=== PATIENT | female | born 1970 ===

== ENCOUNTER 2018-09-21 17:47 | Emergency (ER) | payer OTHER ==
[2018-09-21 18:12] VITALS: RESP 16
[2018-09-21 19:17] LABS: BASO # 0.1 K/uL (0.0-0.2); EOS # 0.1 K/uL (0.0-0.7); EOS % 1.4 % (0.0-4.0); LYMPH # 2.6 K/uL (1.0-4.3); LYMPH % 35.1 % (20.0-40.0); MEAN CELL VOLUME 87.1 fl (81.0-99.0); MEAN CORPUSCULAR HEMOGLOBIN 28.3 pg (27.0-31.0); MEAN CORPUSCULAR HGB CONC 32.5 g/dL (33.0-37.0); MEAN PLATELET VOLUME 10.5 fl (7.2-11.7); MONO # 0.6 K/uL (0.0-0.8); MONO % 8.5 % (0.0-10.0); NEUT # 3.9 K/uL (1.8-7.0); RBC 4.6 Mil/uL (3.80-5.20); WHITE BLOOD COUNT 7.3 K/uL (4.8-10.8)
[2018-09-21 19:24] LABS: PROTHROMBIN TIME 10.9 Seconds (9.8-13.1)
[2018-09-21 19:26] LABS: PARTIAL THROMBOPLASTIN TIME 31.7 Seconds (25.6-37.1)
[2018-09-21 19:38] LABS: ALB/GLOB RATIO 1.3 (1.0-2.1); ALBUMIN 4.2 g/dL (3.5-5.0); ALT/SGPT 31 U/L (9-52); AST/SGOT 26 U/L (14-36); BLOOD UREA NITROGEN 22 mg/dl (7-17); CALCIUM 9.5 mg/dL (8.4-10.2); GFR NON-AFRICAN AMERICAN > 60; LIPASE 66 U/L (23-300)
--- NOTE | 2018-09-21 19:43 | ED PDOC ---
HPI: Abdomen Time Seen by Provider: 09/21/18 18:28 Chief Complaint (Nursing): Abdominal Pain Chief Complaint (Provider): Abdominal Pain History Per: Patient History/Exam Limitations: no limitations Onset/Duration Of Symptoms: Days (x2 weeks ) Associated Symptoms: denies: Fever, Chills Additional Complaint(s): Patient is a 48 year old female with a past medical history of anxiety, who presents to the emergency department complaining of intermittent abdominal pain. Patient states that pain comes suddenly and resolves spontaneously on its own without intervention. She states that pain has been present all day and is worse with deep breaths. It is associated with nausea and decreased appetite, but she denies having any vomiting, diarrhea, constipation, fever, chills, or urinary symptoms. Patient saw her PMD earlier this week, who recommends a CT scan that is scheduled for this Wednesday. PMD: Jim Bloom Past Medical History Reviewed: Historical Data, Nursing Documentation, Vital Signs Vital Signs: Last Vital Signs Temp 98.2 F 09/21/18 18:10 Pulse 77 09/21/18 18:10 Resp 16 09/21/18 18:10 BP 134/85 09/21/18 18:10 Pulse Ox 100 09/21/18 18:10 - Medical History PMH: Anxiety, Depression - Surgical History Surgical History: ( x 3) Other surgeries: hysterectomy; left shoulder surgery - Family History Family History: States: Hypertension - Social History Current smoker - smoking cessation education provided: No Ex-Smoker (has not smoked in the last 12 months): No Alcohol: None - Home Medications Home Medications: Ambulatory Orders Medication Instructions Recorded Paroxetine HCl [Paxil] 10 mg PO DAILY 09/19/18 Amoxicillin/Clavulanate [Augmentin 1 tab PO BID #20 tab 09/21/18 875 MG-125 MG] Clarithromycin [Biaxin Filmtab] 500 mg PO BID #20 tab 09/21/18 Dicyclomine [Bentyl] 20 mg PO QID PRN #20 tab 09/21/18 Omeprazole Magnesium [Prilosec Otc] 20 mg PO BID #30 tcp 09/21/18 Saccharomyces Boulardi [Florastor] 500 mg PO BID #28 cap 09/21/18 - Allergies Allergies/Adverse Reactions: Allergies Allergy/AdvReac Type Severity Reaction Status Date / Time No Known Allergies Allergy Verified 09/21/18 18:10 Review of Systems ROS Statement: Except As Marked, All Systems Reviewed And Found Negative Constitutional: Negative for: Fever, Chills Gastrointestinal: Positive for: Nausea, Abdominal Pain. Negative for: Vomiting, Diarrhea, Constipation Genitourinary Female: Negative for: Dysuria, Frequency, Incontinence, Hematuria Physical Exam - Reviewed Nursing Documentation Reviewed: Yes Vital Signs Reviewed: Yes - Physical Exam Appears: Positive for: Non-toxic, In Acute Distress (mild painful distress) Head Exam: Positive for: ATRAUMATIC, NORMOCEPHALIC Skin: Positive for: Warm, Dry Eye Exam: Positive for: EOMI, PERRL ENT: Negative for: Pharyngeal Erythema, Tonsillar Exudate Neck: Positive for: Painless ROM, Supple Cardiovascular/Chest: Positive for: Regular Rate, Rhythm. Negative for: Murmur Respiratory: Positive for: Normal Breath Sounds. Negative for: Respiratory Distress Gastrointestinal/Abdominal: Positive for: Soft, Tenderness (RUQ tenderness to palpation with positive Rodriguez's sign; Right periumbilical tenderness to palpation; (-) Mcburney's point tenderness). Negative for: Mass, Distended, Guarding, Rebound Back: Positive for: Normal Inspection. Negative for: Muscle Spasm Extremity: Positive for: Normal ROM. Negative for: Deformity Lymphatic: Negative for: Adenopathy Neurologic/Psych: Positive for: Alert. Negative for: Motor/Sensory Deficits - Laboratory Results Result Diagrams: 09/21/18 19:13 09/21/18 19:13 Lab Results: PT 10.9 Seconds (9.8-13.1) 09/21/18 19:13 INR 1.0 09/21/18 19:13 APTT 31.7 Seconds (25.6-37.1) 09/21/18 19:13 Total Bilirubin 0.5 mg/dl (0.2-1.3) 09/21/18 19:13 AST 26 U/L (14-36) 09/21/18 19:13 ALT 31 U/L (9-52) 09/21/18 19:13 Alkaline Phosphatase 87 U/L (38-126) 09/21/18 19:13 Total Protein 7.4 G/DL (6.3-8.2) 09/21/18 19:13 Albumin 4.2 g/dL (3.5-5.0) 09/21/18 19:13 Globulin 3.2 gm/dL (2.2-3.9) 09/21/18 19:13 Albumin/Globulin Ratio 1.3 (1.0-2.1) 09/21/18 19:13 Lipase 66 U/L (23-300) 09/21/18 19:13 - ECG O2 Sat by Pulse Oximetry: 100 (RA) Pulse Ox Interpretation: Normal Medical Decision Making Medical Decision Making: Time: 1843 Impression: right sided abdominal pain --Differential diagnosis includes but is not limited to Cholecystitis, Cholelithiasis, Pancreatitis, Gastritis, and Colitis Plan: --CMP --Lipase --ED urine dipstick --Saline Lock --Abdomen Limited US (GB included) Time: 1957 US findings: History Right sided pain. Comparison None. Technique Sonographic evaluation of the right upper quadrant of the abdomen. Findings: Liver Measures 15.6 cm in length. Normal echogenicity of the liver parenchyma. No mass. No intrahepatic bile duct dilatation. Gallbladder Unremarkable. No gallstones. Wall thickness measures 0.2 cm. Common bile duct Measures 3 mm. No stones. No dilatation. Pancreas Unremarkable as visualized. No mass. No ductal dilatation. Right kidney Measures 11.9 x 4.4 x 3.6 cm in length. Normal echogenicity. No calculus, mass, or hydronephrosis. Aorta No aneurysmal dilatation. IVC Unremarkable. Other Findings None. Impression Normal study. Name: SEA LIMON Exam Date: Sep 21, 2018 8:35:44 PM EST Modality Type: CT Description: CT - ABDOMEN AND PELVIS WITH CORONAL AND SAGITTAL MPRS Gender: F Laterality: Not applicable : 68 Referring Physician: Venecia George EXAM: CT Abdomen and Pelvis with IV contrast CLINICAL HISTORY: Rt sided abd pain TECHNIQUE: Axial computed tomography images of the abdomen and pelvis with intravenous contrast. 783.35 mGy-cm CONTRAST: With; [id number] 95ML COMPARISON: None provided. FINDINGS: LUNG BASES: The lung bases appear clear. No pleural effusions are seen. LIVER: Unremarkable. GALLBLADDER AND BILE DUCTS: The gallbladder appears within normal limits. No radioopaque gallstones are seen. No biliary ductal dilatation is evident. PANCREAS: Unremarkable. SPLEEN: Unremarkable. ADRENAL GLANDS: Unremarkable. KIDNEYS, URETERS, AND BLADDER: The kidneys appear within normal limits. There is no hydronephrosis or hydroureter. No urinary calculi are seen. STOMACH AND BOWEL: Note is made of distended thick walled stomach and fluid filled thick walled ileum compatible with gastroenteritis. Consider consultation with GI service. APPENDIX: No evidence of acute appendicitis on CT examination. PERITONEUM: No free fluid. No free air. LYMPH NODES: No lymphadenopathy is evident. REPRODUCTIVE: Unremarkable as visualized. VASCULATURE: No evidence of abdominal aortic aneurysm. BONES: No aggressive appearing osseous lesion. No acute osseous pathology evident. IMPRESSION: Normal appendix. Gastroenteritis as above. Consider consultation with GI service. Electronically signed on Sep 21, 2018 9:46:55 PM EST by: Braden Redd M.D., JESSICA Certified By [facility] Fellowship Trained MRI and CT Specialist Labs unremarkable On reevaluation, pt appears well. DW pt findings and plan of care. Treatment for gastroenteritis and f/u PMD for GI referral. Scribe Attestation: Documented by Ponce Tinoco, acting as a scribe for Venecia George MD. Provider Scribe Attestation: All medical record entries made by the Scribe were at my direction and personally dictated by me. I have reviewed the chart and agree that the record accurately reflects my personal performance of the history, physical exam, medical decision making, and the department course for this patient. I have also personally directed, reviewed, and agree with the discharge instructions and disposition. Disposition - Clinical Impression Clinical Impression: Gastroenteritis Counseled Patient/Family Regarding: Studies Performed, Diagnosis, Need For Followup, Rx Given - Disposition Referrals: Jim Bloom MD [Family Provider] - (FOLLOWUP WITH DR BLOOM IN 24-48 HOURS FOR REEVALUATION AND REFERRAL TO [facility].) Disposition: Routine/Home Disposition Time: 22:11 Condition: STABLE Prescriptions: Amoxicillin/Clavulanate [Augmentin 875 MG-125 MG] 1 tab PO BID #20 tab Clarithromycin [Biaxin Filmtab] 500 mg PO BID #20 tab Dicyclomine [Bentyl] 20 mg PO QID PRN #20 tab PRN Reason: abdominal pain Omeprazole Magnesium [Prilosec Otc] 20 mg PO BID #30 tcp Saccharomyces Boulardi [Florastor] 500 mg PO BID #28 cap Instructions: Gastroenteritis (ED) Forms: [facility] ED School/Work Excuse
[2018-09-21] MEDS ORDERED: Sodium Chloride 0.9% 50 ML IV ONE (20:21)
[2018-09-21] MEDS ORDERED: Iohexol 300 100 ML IJ ONE (20:21)
[2018-09-21 22:11] VITALS: O2SAT 100
[2018-09-21 22:21] VITALS: BP 123/73; PULSE 72; TEMP 97.8
--- NOTE | 2018-09-22 10:40 | CT ---
Date of service: 09/21/2018 PROCEDURE: CT Abdomen and Pelvis with contrast HISTORY: RIGHT sided abdominal pain COMPARISON: None available. TECHNIQUE: CT scan of the abdomen and pelvis was performed after administration of intravenous contrast. Oral contrast was not administered. Coronal and sagittal reformatted images were obtained. Contrast dose: 95 mL Omnipaque 300 Radiation dose: Total exam DLP = 783.35 mGy-cm. This CT exam was performed using one or more of the following dose reduction techniques: Automated exposure control, adjustment of the mA and/or kV according to patient size, and/or use of iterative reconstruction technique. FINDINGS: LOWER THORAX: The visualized lungs are clear. LIVER: Normal in size with homogeneous enhancement. No gross lesion or ductal dilatation. GALLBLADDER AND BILE DUCTS: Well distended. No calcified gallstones, wall thickening or pericholecystic fluid. PANCREAS: Normal in size with homogeneous enhancement. No gross lesion or ductal dilatation. SPLEEN: Normal in size and appearance. ADRENALS: No discrete nodule. KIDNEYS AND URETERS: Normal in size with homogeneous enhancement. No hydronephrosis. No solid mass. VASCULATURE: No aortic aneurysm. There are no aortic atherosclerotic calcifications or mural plaque present. BOWEL: Evaluation of the bowel is limited in the absence of oral contrast. The proximal small bowel loops are normal in caliber. There is fluid in normal caliber distal small bowel loops. There is mild sigmoid diverticulosis without CT evidence for acute diverticulitis. There is moderate amount of stool in the colon. No bowel wall thickening or obstruction. APPENDIX: Normal appendix. PERITONEUM: No free fluid. No free air. LYMPH NODES: No enlarged lymph nodes. The BLADDER: Well distended and normal in appearance. REPRODUCTIVE: The uterus is normal in size. BONES: No acute fracture. Severe degenerative disc disease at L5-S1. OTHER FINDINGS: None. IMPRESSION: No acute abdominal or pelvic abnormality. Fluid in normal caliber distal small bowel loops nonspecific. Constipation. No evidence for bowel obstruction. Mild sigmoid diverticulosis without CT evidence for acute diverticulitis. A preliminary report was provided by [facility].
--- NOTE | 2018-09-22 11:04 | US ---
Date of service: 09/21/2018 HISTORY: RIGHT sided pain COMPARISON: None. TECHNIQUE: Sonographic evaluation of the right upper quadrant of the abdomen. FINDINGS: LIVER: Measures 15.6 cm in length. Normal echogenicity of the liver parenchyma. No mass. No intrahepatic bile duct dilatation. GALLBLADDER: Unremarkable. No gallstones. COMMON BILE DUCT: Measures 3 mm. No stones. No dilatation. PANCREAS: Unremarkable as visualized. No mass. No ductal dilatation. RIGHT KIDNEY: Measures 11.9 cm in length. Normal echogenicity. No calculus, mass, or hydronephrosis. AORTA: No aneurysmal dilatation. IVC: Unremarkable. OTHER FINDINGS: None . IMPRESSION: Unremarkable examination. The preliminary findings for this examination were reported by [facility] at 7:58 p.m. on 09/21/2018. There is concurrence of this report with the preliminary findings.
== END 2018-09-21 22:27 | disposition home or self-care (01) ==
LOC: H.ER 17:47
DX: K52.9 Noninfective gastroenteritis and colitis, unspecified (principal); F41.9 Anxiety disorder, unspecified; Z87.891 Personal history of nicotine dependence; Z90.710 Acquired absence of both cervix and uterus
CPT/HCPCS: 74177; 76705; 80053; 81025; 83690; 85025; 85610; 85730; 99284; Q9967